=== PATIENT | female | born 1990 | race African-American/Black ===

== ENCOUNTER 2021-07-05 12:46 | Emergency (ER) | payer OTHER ==
[~2021-07-05] VITALS: Ht 170.2 cm; Wt 64.0 kg
[2021-07-05 12:51] VITALS: BP 132/67
== END 2021-07-06 11:41 | disposition home or self-care (01) ==
LOC: ER 12:46
DX: S82.832A Other fracture of upper and lower end of left fibula, initial encounter for closed fracture (principal); X58.XXXA Exposure to other specified factors, initial encounter; Y93.89 Activity, other specified; Y92.89 Other specified places as the place of occurrence of the external cause
CPT/HCPCS: 99281

== ENCOUNTER 2023-04-20 12:30 | Emergency (ER) | payer OTHER ==
[~2023-04-20] VITALS: Ht 170.2 cm; Wt 68.5 kg
[2023-04-20 12:32] VITALS: BP 128/88; TEMP 98.8; O2SAT 99
[2023-04-20 12:33] VITALS: PULSE 95; RESP 16
[2023-04-20] MEDS ORDERED: FLUORESCEIN SODIUM 1MG/STRIP LEFTEYE ONE (13:00)
[2023-04-20] MEDS ORDERED: TETRACAINE 0.5% OPHTH DROPS 4ML LEFTEYE ONE (13:00)
[2023-04-20] MEDS ORDERED: TETRACAINE 0.5% OPHTH DROPS 4ML LEFTEYE NR (16:00)
[2023-04-20] MEDS ORDERED: FLUORESCEIN SODIUM 1MG/STRIP LEFTEYE NR (16:00)
== END 2023-04-20 17:48 | disposition home or self-care (01) ==
LOC: ER 12:30
DX: S00.10XA Contusion of unspecified eyelid and periocular area, initial encounter (principal); D64.9 Anemia, unspecified; X58.XXXA Exposure to other specified factors, initial encounter; Y93.89 Activity, other specified; Y92.89 Other specified places as the place of occurrence of the external cause; Y99.8 Other external cause status
CPT/HCPCS: 99282

== ENCOUNTER 2024-08-07 08:54 | Emergency (ER) | payer OTHER ==
[~2024-08-07] VITALS: Ht 170.2 cm; Wt 68.9 kg
[2024-08-07 08:59] VITALS: O2SAT 98
[2024-08-07 12:25] VITALS: BP 120/80; PULSE 90; RESP 16; TEMP 36.9; O2SAT 98
== END 2024-08-07 12:25 | disposition home or self-care (01) ==
LOC: ER 08:54
DX: R05.9 Cough, unspecified (principal); R07.89 Other chest pain
CPT/HCPCS: 71046; 81025; 99283

== ENCOUNTER 2024-10-26 11:40 | Emergency (ER) | payer OTHER ==
[~2024-10-26] VITALS: Ht 172.7 cm; Wt 62.0 kg
[2024-10-26 11:42] VITALS: TEMP 37.2; O2SAT 100
[2024-10-26] MEDS: ACETAMINOPHEN 325MG TABLET PO ONE (12:08)
[2024-10-26] MEDS ORDERED: FLUT9.9S16 BOTHNSTRLS (13:46)
[2024-10-26 14:00] VITALS: BP 119/83; PULSE 74; RESP 16; O2SAT 99
== END 2024-10-26 14:06 | disposition home or self-care (01) ==
LOC: ER 11:40
DX: J34.89 Other specified disorders of nose and nasal sinuses (principal); R51.9 Headache, unspecified; Z79.899 Other long term (current) drug therapy
CPT/HCPCS: 99284